=== PATIENT | female | born 1960 | race Caucasian/White ===

== ENCOUNTER 2017-05-25 16:03 | Emergency (ER) | payer OTHER ==
[~2017-05-25] VITALS: Ht 167.6 cm; Wt 83.9 kg
[~2017-05-25 16:03] MED LIST: ABILIFY 5 MG TAB5 MG PO; AMBIEN 5 MG TABL5 M1 PO; APAP500 PO; CALCIUM 500 +1 EAC5 PO; CLEOCIN HCL300 MG PO; COLACE100 MG PO; COZAAR 25 MG TA25 MG PO; COZAAR 50 MG TA50 M1 PO; EFFEXOR XR150 MG PO; EFFEXOR37.5 MG PO; EFFEXOR75 MG PO; ESTRACE1 MG PO; ESTRO SUPPORT200 MCG PO; FENOFIBRATE134 MG PO; FISH OIL 1,0001 EAC5 PO; FLEXERIL PO; IBUPROFEN 600600 M1 PO; LINZESS290 MCG PO; LORTAB 5-325 M1 EACH PO; LORTAB PO; MULTIVITAMINS PO; NEXIUM40 MG PO; NEXIUM5 MG PO; NORCO 5-325 TA1 EACH PO; PERCOCET 5-3251 EACH PO; TRIGLIDE160 M1 PO; TRIGLIDE50 MG PO; VIIBRYD40 MG PO; VITAMIN B-1100 M1 PO; VITAMIN D3400 UNIT PO; WELLBUTRIN XL300 MG PO; ZOFRAN ODT4 MG PO; [UNRECOGNIZED DRUG - OTHER] PO
[2017-05-25] MEDS ORDERED: CYMBALTA30 MG PO (16:36)
[2017-05-25] MEDS ORDERED: TRAZODONE HCL50 MG PO (16:37)
[2017-05-25] MEDS ORDERED: PHENERGAN 25 MG25 M1 PO (16:49)
[2017-05-31] MEDS ORDERED: OMEPRAZOLE20 M2 PO (08:40)
[2017-05-31] MEDS ORDERED: CLARITIN10 MG PO (08:40)
[2017-05-31] MEDS ORDERED: FLONASE 0.05%50 MCG NASAL (08:40)
[2017-05-31] MEDS ORDERED: COMPAZINE10 MG PO (09:35)
[2017-05-31] MEDS ORDERED: VALIUM5 MG PO (09:35)
== END 2017-05-25 17:57 | disposition home or self-care (01) ==
LOC: ER 16:03
DX: R51 Headache (principal); F32.9 Major depressive disorder, single episode, unspecified; K21.9 Gastro-esophageal reflux disease without esophagitis; Z90.49 Acquired absence of other specified parts of digestive tract; Z90.710 Acquired absence of both cervix and uterus; Z87.442 Personal history of urinary calculi; Z88.0 Allergy status to penicillin; Z88.8 Allergy status to other drugs, medicaments and biological substances; Z87.891 Personal history of nicotine dependence

== ENCOUNTER 2017-06-09 16:17 | Emergency (ER) | payer OTHER ==
[~2017-06-09] VITALS: Ht 167.6 cm; Wt 83.9 kg
[~2017-06-09 16:17] MED LIST changes: +CLARITIN10 MG PO; +COMPAZINE10 MG PO; +CYMBALTA30 MG PO; +FLONASE 0.05%50 MCG NASAL; +OMEPRAZOLE20 M2 PO; +PHENERGAN 25 MG25 M1 PO; +TRAZODONE HCL50 MG PO; +VALIUM5 MG PO
== END 2017-06-09 18:29 | disposition home or self-care (01) ==
LOC: ER 16:17
DX: R51 Headache (principal); F32.9 Major depressive disorder, single episode, unspecified; I10 Essential (primary) hypertension; Z87.442 Personal history of urinary calculi; Z90.49 Acquired absence of other specified parts of digestive tract; Z90.710 Acquired absence of both cervix and uterus; Z88.8 Allergy status to other drugs, medicaments and biological substances; Z88.0 Allergy status to penicillin; Z87.891 Personal history of nicotine dependence

== ENCOUNTER → 2018-02-05 | Outpatient (CLI) | payer OTHER | LOC: MRI 07:12 | DX: M47.26 Other spondylosis with radiculopathy, lumbar region (principal) ==

== ENCOUNTER 2019-01-27 13:04 | Emergency (ER) | payer OTHER ==
[~2019-01-27] VITALS: Ht 167.6 cm; Wt 72.6 kg
[2019-01-27 14:12] LABS: ABSOLUTE NEUTROPHILS 2.9 thou/uL (1.4-8.2); EOSINOPHILS 1.4 % (0.0-3.0); HEMATOCRIT 39.9 % (37.0-47.0); HEMOGLOBIN 13.7 gm/dL (12.0-15.0); LYMPHOCYTES 33.5 % (24.0-44.0); MCH 31.2 pg (26.0-34.0); MCHC 34.3 g/dL (28.0-37.0); MCV 91.1 fL (80.0-100.0); MONOCYTES 6.9 % (1.0-8.0); PLATELET COUNT 199 thou/uL (150-400); POLYS 57.2 % (36.0-66.0); RBC 4.38 mil/uL (4.20-5.00); RDW 12.2 % (10.5-14.5); WBC 5.1 thou/uL (4.0-11.0)
[2019-01-27 14:20] LABS: ANION GAP 9 mmol/L (7-16); BUN 18 mg/dL (7-18); CALCIUM 9.9 mg/dL (8.5-10.1); CHLORIDE 100 mmol/L (98-107); CO2 30 mmol/L (21-32); CREATININE 0.8 mg/dL (0.6-1.0); GLUCOSE 105 mg/dL (74-106); POTASSIUM 3.7 mmol/L (3.5-5.1); SODIUM 139 mmol/L (136-145)
[2019-01-27 14:30] LABS: ALBUMIN 4.1 g/dL (3.4-5.0); SGOT 39 U/L (15-37); SGPT 47 U/L (30-65); TOTAL BILIRUBIN 0.2 mg/dL (<0.1-1.0); TOTAL PROTEIN 8.1 g/dL (6.4-8.2); TROPONIN-I <0.06 ng/mL (<0.06)
[2019-01-27] MEDS ORDERED: MOBIC15 MG PO (15:29)
[2019-01-27 15:49] VITALS: BP 162/65
--- NOTE | 2019-01-28 09:34 | EKG ---
[place] [address] [facility] [place] [address] ELECTROCARDIOGRAM REPORT Name: GERALD CORONADOLY Dora [id number] ������������������ Admission: 01/27/19 ������������������ Attend Phys: Discharge: 01/27/19 ������������������ Date of : 64 Report #: [id number] ����������������������������������������������������������������� [id number] THIS REPORT FOR: //name// [facility] ED Test Date: 2019-01-27 Test Time: 13:10:33 Pat Name: RIYA CORONADO Department: Room: Gender: F Cassandra Consultant: KKODJOVI : 1960 Requested By: Anne Marie Bergman Order Number: [id number] MD: Sean Mercedes Measurements Intervals [place] Rate: 68 P: 54 MO: 146 QRS: 28 QRSD: 87 T: 9 QT: 420 QTc: 447 Interpretive Statements Sinus rhythm Probable left atrial enlargement Nonspecific T abnormalities, anterior leads Compared to ECG 07/30/2016 06:43:21 No significant changes Electronically Signed On 01-28-2019 9:33:55 CDT by Sean Mercedes [email or web address] ��������������������������������������������� <ELECTRONICALLY SIGNED> ���������������������������������������� By: Sean Mercedes MD ��������������������������������������������� 01/28/19 0933 1310 1310 Sean Mercedes MD /NABEEL
== END 2019-01-27 15:50 | disposition home or self-care (01) ==
LOC: ER 13:04
PROVIDERS: Physician Assistant
DX: R07.89 Other chest pain (principal); K21.9 Gastro-esophageal reflux disease without esophagitis; F32.9 Major depressive disorder, single episode, unspecified; K58.9 Irritable bowel syndrome, unspecified; I10 Essential (primary) hypertension; Z87.442 Personal history of urinary calculi; Z87.891 Personal history of nicotine dependence; Z88.8 Allergy status to other drugs, medicaments and biological substances; Z88.0 Allergy status to penicillin; Z90.49 Acquired absence of other specified parts of digestive tract; Z90.710 Acquired absence of both cervix and uterus

== ENCOUNTER 2019-04-03 21:29 | Emergency (ER) | payer OTHER ==
[~2019-04-03] VITALS: Ht 167.6 cm; Wt 81.7 kg
[~2019-04-03 21:29] MED LIST changes: +MOBIC15 MG PO
[2019-04-04] MEDS ORDERED: KEFLEX500 M1 PO (00:16)
[2019-04-04 00:27] VITALS: BP 143/87
== END 2019-04-04 00:30 | disposition home or self-care (01) ==
LOC: ER 21:29
DX: T81.40XA Infection following a procedure, unspecified, initial encounter (principal); L03.031 Cellulitis of right toe; L03.032 Cellulitis of left toe; F32.9 Major depressive disorder, single episode, unspecified; K21.9 Gastro-esophageal reflux disease without esophagitis; K58.9 Irritable bowel syndrome, unspecified; Z90.49 Acquired absence of other specified parts of digestive tract; Z87.442 Personal history of urinary calculi; Y84.8 Other medical procedures as the cause of abnormal reaction of the patient, or of later complication, without mention of misadventure at the time of the procedure; Y92.89 Other specified places as the place of occurrence of the external cause

== ENCOUNTER 2021-10-06 08:45 | Emergency (ER) | payer OTHER ==
[~2021-10-06] VITALS: Ht 165.1 cm; Wt 90.7 kg
[~2021-10-06 08:45] MED LIST changes: +KEFLEX500 M1 PO
[2021-10-06] MEDS ORDERED: MECLIZINE HCL25 MG PO (11:20)
[2021-10-06 11:34] VITALS: BP 160/68
--- NOTE | 2021-10-06 13:39 | EKG ---
[facility] [place] [address] ELECTROCARDIOGRAM REPORT Name: DENNYS CORONADORAFAL John 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: [place] : 1960 Requested By: Alisha Alford Order Number: [id number] MD: Brett Meyers Measurements Intervals [place] Rate: 88 P: 38 SC: 134 QRS: 1 QRSD: 82 T: 7 QT: 371 QTc: 449 Interpretive Statements Sinus rhythm LVH by voltage Borderline T abnormalities, anterior leads Compared to ECG 01/27/2019 13:10:33 Left ventricular hypertrophy now present T-wave abnormality still present Electronically Signed On 10-06-2021 13:39:18 BAR CAPTAIN by Brett Meyers [email or web address] <ELECTRONICALLY SIGNED> By: Brett Meyers MD, [facility] 10/06/21 1339 D: [id number] Brett Meyers MD, FACC /EPI
== END 2021-10-06 11:48 | disposition home or self-care (01) ==
LOC: ER 08:45
DX: H81.13 Benign paroxysmal vertigo, bilateral (principal); F32.9 Major depressive disorder, single episode, unspecified; K21.9 Gastro-esophageal reflux disease without esophagitis; I10 Essential (primary) hypertension; F41.9 Anxiety disorder, unspecified; Z79.899 Other long term (current) drug therapy; Z90.49 Acquired absence of other specified parts of digestive tract; Z90.710 Acquired absence of both cervix and uterus; Z88.0 Allergy status to penicillin; Z88.8 Allergy status to other drugs, medicaments and biological substances